=== PATIENT | male | born 1965 | race African-American/Black ===

== ENCOUNTER 2018-05-24 13:58 | Observation (INO) ==
[2018-05-24] MEDS ORDERED: 0.9 % Sodium Chloride 1,000 ML IVC ONE (14:28)
[2018-05-24] MEDS ORDERED: Ondansetron 4 MG/2 ML VIAL IVP ONE (14:30)
[2018-05-24 14:49] LABS: Basophils # 0.1 K/mcL (0.0-0.2); Basophils % 0.3 %; Eosinophils # 0.1 K/mcL (0.0-0.6); Eosinophils % 0.7 %; Hematocrit 40.2 % (37.5-50.1); Hemoglobin 13.7 g/dL (12.9-16.9); Immature Granulocytes % 0.8 % (0-4); Lymphocytes # 1.6 K/mcL (0.6-4.6); Lymphocytes % 8.6 %; Mean Corpuscular HGB Conc 34.1 g/dL (31.6-35.5); Mean Corpuscular Volume 82.2 fL (83.0-100.0); Mean Platelet Volume 9.7 fL (9.4-12.4); Monocytes # 1.5 K/mcL (0.0-1.3); Monocytes % 7.8 %; Neutrophils # 15.5 K/mcL (1.6-8.9); Platelet Count 466 K/mcL (140-400); Red Blood Count 4.89 M/mcL (4.19-5.50); Red Cell Distribution Width 13.6 % (11.5-14.5); Segmented Neutrophils % 81.8 %
[2018-05-24] MEDS ORDERED: Azithromycin 500 MG in D5% in Water 250 ML IVPB ONE (14:59)
[2018-05-24 15:02] LABS: Alanine Aminotransferase 58 Units/L (7-52); Albumin 3.4 g/dL (3.5-5.7); Albumin/Globulin Ratio 0.8 (1.1-2.2); Alkaline Phosphatase 129 Units/L (34-104); Aspartate Amino Transferase 48 Units/L (13-39); BUN/Creatinine Ratio 8 (6-26); Bilirubin,Direct 0.2 mg/dL (0.0-0.2); Bilirubin,Indirect 0.5 mg/dL (0.0-1.2); Bilirubin,Total 0.7 mg/dL (0.3-1.0); Blood Urea Nitrogen 9 mg/dL (6-20); Calcium 9.4 mg/dL (8.6-10.3); Carbon Dioxide 26 mEq/L (23-29); Chloride 100 mEq/L (98-107); Globulin 4.5 g/dL (2.4-3.5); Glucose 119 mg/dL (70-105); Lipase 19 Units/L (11-82); Magnesium 2.4 mg/dL (1.6-2.6); Osmolality,Calculated 282 (280-300); Potassium 3.5 mEq/L (3.5-5.1); Sodium 136 mEq/L (136-145); Total Protein 7.9 g/dL (6.4-8.9); eGFR For Non-African Americans > 60 (> 60)
[2018-05-24 15:22] LABS: Bilirubin,Urine Small (Negative); Blood,Urine Small (Negative); Clarity,Urine Cloudy (Clear); Color,Urine Yellow (Yellow); Glucose,Urine (UA) Normal (Normal); Ketones,Urine Negative (Negative); Leukocyte Esterase,Urine Negative (Negative); Nitrite,Urine Negative (Negative); Protein,Urine 100 mg/dL (Neg-Trace); Specific Gravity,Urine 1.025 (1.010-1.025)
[2018-05-24 15:25] LABS: Hyaline Casts,Urine None Seen per lpf (None-Few); RBC,Urine 0-3 per hpf (0-3)
[2018-05-24 15:42] LABS: Squamous Epithelial Cell,Urine Few per lpf (None-Few)
[2018-05-24 15:43] LABS: Bacteria,Urine Few per hpf (None-Few); WBC,Urine 0-3 per hpf (0-3)
--- NOTE | 2018-05-24 16:00 | Emergency Department Note ---
Disposition Clinical Impression: Pneumonia Qualifiers: Pneumonia type: due to unspecified organism Laterality: bilateral Lung location: lower lobe of lung Qualified Code(s): J18.1 - Lobar pneumonia, unspecified organism Disposition: Admitted As Inpatient Referrals: NONE,PCP [Primary Care Provider] - General Adult HPI - General Chief complaint: ED Weakness Stated complaint: sick/bones hurt/vomiting Time Seen by Provider: 05/24/18 14:08 Source: patient Limitations: no limitations - History of Present Illness Pain Scale: 8 - Related Data Allergies Allergy/AdvReac Type Severity Reaction Status Date / Time No Known Allergies Allergy Verified 05/24/18 14:01 Past Medical History - Past Medical History Medical history: Reports: no medical history Psychiatric history: Reports: no psych history - Social History Smoking Status: Current every day smoker Smokeless Tobacco Status: No Alcohol use: Reports: rarely Drug use: Reports: none Physical Exam - General Limitations: no limitations General appearance: alert, in no apparent distress Course Vital Signs Temperature 100.1 F H 05/24/18 13:59 Pulse Rate 114 05/24/18 13:59 Respiratory Rate 22 05/24/18 13:59 Blood Pressure 143/77 05/24/18 13:59 O2 Sat by Pulse Oximetry 93 05/24/18 13:59 Temperature 101.9 F H 05/24/18 15:34 Pulse Rate 103 05/24/18 15:34 Respiratory Rate 20 05/24/18 15:34 Blood Pressure 140/91 05/24/18 15:34 O2 Sat by Pulse Oximetry 99 05/24/18 15:34 Oxygen Delivery Oxygen Delivery Room Air Medical Decision Making - Lab Data Result diagrams: 05/24/18 14:33 05/24/18 14:33 Lab Results 05/24/18 05/24/18 05/24/18 Range/Units 14:33 14:33 14:33 WBC 18.9 H (4.3-11.1) K/mcL RBC 4.89 (4.19-5.50) M/mcL Hgb 13.7 (12.9-16.9) g/dL Hct 40.2 (37.5-50.1) % MCV 82.2 L (83.0-100.0) fL MCH 28.0 (28.0-33.3) pg MCHC 34.1 (31.6-35.5) g/dL RDW 13.6 (11.5-14.5) % Plt Count 466 H (140-400) K/mcL MPV 9.7 (9.4-12.4) fL Immature Gran % 0.8 (0-4) % Seg Neutrophils % 81.8 % Lymphocytes % 8.6 % Monocytes % 7.8 % Eosinophils % 0.7 % Basophils % 0.3 % Neutrophils # 15.5 H (1.6-8.9) K/mcL Lymphocytes # 1.6 (0.6-4.6) K/mcL Monocytes # 1.5 H (0.0-1.3) K/mcL Eosinophils # 0.1 (0.0-0.6) K/mcL Basophils # 0.1 (0.0-0.2) K/mcL Sodium (136-145) mEq/L Potassium (3.5-5.1) mEq/L Chloride (98-107) mEq/L Carbon Dioxide (23-29) mEq/L BUN (6-20) mg/dL Creatinine (0.70-1.30) mg/dL Est GFR ( Amer) (> 60) Est GFR (Non-Af Amer) (> 60) BUN/Creatinine Ratio (6-26) Glucose (70-105) mg/dL Calculated Osmolality (280-300) Lactic Acid 1.1 (0.5-2.2) mmol/L Calcium (8.6-10.3) mg/dL Magnesium (1.6-2.6) mg/dL Total Bilirubin (0.3-1.0) mg/dL Direct Bilirubin (0.0-0.2) mg/dL Indirect Bilirubin (0.0-1.2) mg/dL AST (13-39) Units/L ALT (7-52) Units/L Alkaline Phosphatase (34-104) Units/L Troponin I < 0.03 (< 0.04) ng/mL Serum Total Protein (6.4-8.9) g/dL Albumin (3.5-5.7) g/dL Globulin (2.4-3.5) g/dL Albumin/Globulin Ratio (1.1-2.2) Lipase (11-82) Units/L Urine Color (Yellow) Urine Clarity (Clear) Urine pH (5.0-8.0) pH Units Ur Specific [place] (1.010-1.025) Urine Protein (Neg-Trace) mg/dL Urine Glucose (UA) (Normal) mg/dL Urine Ketones (Negative) mg/dL Urine Blood (Negative) Urine Nitrite (Negative) Urine Bilirubin (Negative) Urine Urobilinogen (Normal) mg/dL Ur Leukocyte Esterase (Negative) Urine Microscopic RBC (0-3) per hpf Urine Microscopic WBC (0-3) per hpf Ur Squamous Epith Cells (None-Few) per lpf Urine Bacteria (None-Few) per hpf Hyaline Casts (None-Few) per lpf Ur Culture Indicated? (NO) 05/24/18 05/24/18 Range/Units 14:33 14:55 WBC (4.3-11.1) K/mcL RBC (4.19-5.50) M/mcL Hgb (12.9-16.9) g/dL Hct (37.5-50.1) % MCV (83.0-100.0) fL MCH (28.0-33.3) pg MCHC (31.6-35.5) g/dL RDW (11.5-14.5) % Plt Count (140-400) K/mcL MPV (9.4-12.4) fL Immature Gran % (0-4) % Seg Neutrophils % % Lymphocytes % % Monocytes % % Eosinophils % % Basophils % % Neutrophils # (1.6-8.9) K/mcL Lymphocytes # (0.6-4.6) K/mcL Monocytes # (0.0-1.3) K/mcL Eosinophils # (0.0-0.6) K/mcL Basophils # (0.0-0.2) K/mcL Sodium 136 (136-145) mEq/L Potassium 3.5 (3.5-5.1) mEq/L Chloride 100 (98-107) mEq/L Carbon Dioxide 26 (23-29) mEq/L BUN 9 (6-20) mg/dL Creatinine 1.08 (0.70-1.30) mg/dL Est GFR ( Amer) > 60 (> 60) Est GFR (Non-Af Amer) > 60 (> 60) BUN/Creatinine Ratio 8 (6-26) Glucose 119 H (70-105) mg/dL Calculated Osmolality 282 (280-300) Lactic Acid (0.5-2.2) mmol/L Calcium 9.4 (8.6-10.3) mg/dL Magnesium 2.4 (1.6-2.6) mg/dL Total Bilirubin 0.7 (0.3-1.0) mg/dL Direct Bilirubin 0.2 (0.0-0.2) mg/dL Indirect Bilirubin 0.5 (0.0-1.2) mg/dL AST 48 H (13-39) Units/L ALT 58 H (7-52) Units/L Alkaline Phosphatase 129 H (34-104) Units/L Troponin I (< 0.04) ng/mL Serum Total Protein 7.9 (6.4-8.9) g/dL Albumin 3.4 L (3.5-5.7) g/dL Globulin 4.5 H (2.4-3.5) g/dL Albumin/Globulin Ratio 0.8 L (1.1-2.2) Lipase 19 (11-82) Units/L Urine Color Yellow (Yellow) Urine Clarity Cloudy A (Clear) Urine pH 6.0 (5.0-8.0) pH Units Ur Specific [place] 1.025 (1.010-1.025) Urine Protein 100 H (Neg-Trace) mg/dL Urine Glucose (UA) Normal (Normal) mg/dL Urine Ketones Negative (Negative) mg/dL Urine Blood Small H (Negative) Urine Nitrite Negative (Negative) Urine Bilirubin Small H (Negative) Urine Urobilinogen 2.0 H (Normal) mg/dL Ur Leukocyte Esterase Negative (Negative) Urine Microscopic RBC 0-3 (0-3) per hpf Urine Microscopic WBC 0-3 (0-3) per hpf Ur Squamous Epith Cells Few (None-Few) per lpf Urine Bacteria Few (None-Few) per hpf Hyaline Casts None Seen (None-Few) per lpf Ur Culture Indicated? NO (NO) Attestation Statement - Attestation Attestation: I examined this patient and my medical decision-making was reviewed with the Resident Physician. I agree with the documented findings, disposition and treatment plan as described except to the extent set forth below. 53 year old male presents to the ED with complaints of bone pain and sick and is tachycardiac and febrile and meets sIRS criteria. Appears he has pnuemon aon CT and CXR. WE will start azithromyocin and admit to medicne.
--- NOTE | 2018-05-24 16:17 | Internal Med History&Physical ---
Date of Encounter: 05/24/18 Time of Encounter: 17:37 Internal Medicine - H&P: HPI Chief complaint: Fever History of present illness: 53-year-old male with significant past medical history of hypertension presenting to the emergency department with chief complaint of weakness, fevers and chills associated with excessive sweating and chest discomfort . He was evaluated by the emergency department staff and his work up revealed CAP, he was admitted for further evaluation. The patient admitted to drug abuse several years ago. Past Med Surg Social Fam HX - Past Medical History Medical history: no medical history Psychiatric history: no psych history - Past Surgical History Additional surgical history: leah in R leg - Social History Smoking Status: Current every day smoker Smokeless Tobacco Status: No Alcohol use: rarely Drug use: none Internal Medicine - H&P: Meds RX: Lisinopril [Zestril] 20 mg PO DAILY 05/24/18 [History] Allergy/AdvReac Type Severity Reaction Status Date / Time No Known Allergies Allergy Verified 05/24/18 14:01 All Systems PM: A 10-system review of systems was performed and is negative for pertinent findings except as documented above in the HPI. - Constitutional Constitutional: chills, excessive sweating, fatigue, fever(s), no night sweats - Cardiovascular Cardiovascular ROS IM: chest pain, no diaphoresis, no dyspnea, no lightheadedness, no palpitations, no syncope - Respiratory Respiratory: no cough, no dyspnea, no wheezing, no excessive phlegm production - Gastrointestinal Gastrointestinal: no abdominal pain, no diarrhea, no hematemesis, no hematochezia, no melena, no nausea, no vomiting - Neurological Neurological ROS: no confusion, no convulsions, no focal weakness, no numbness, no tingling, no tremor(s) - Constitutional Vitals: Temp Pulse Resp BP Pulse Ox 101.9 F H 103 20 140/91 99 05/24/18 15:34 05/24/18 15:34 05/24/18 15:34 05/24/18 15:34 05/24/18 15:34 General appearance: Present: A&O X 3 Exam: as below - Head Head exam: Present: atraumatic, normocephalic - Neck Neck exam general surgery: Present: supple, trachea midline. Absent: lymphadenopathy - Respiratory Respiratory exam: Present: CTAB. Absent: accessory muscle use, rales, rhonchi, wheezes - Cardiovascular Cardiovascular exam: Present: RRR, +S1, +S2. Absent: diastolic murmur, gallop, rubs, systolic murmur - GI/Abdominal GI/Abdominal exam: Present: normal bowel sounds, soft, no peritoneal signs. Absent: distended, tenderness - Extremities Exam Extremities exam: Present: warm, radial pulses palpable and symmetrical. Absent: calf tenderness, cyanotic, pedal edema Internal Med - H&P Results - Labs CBC & Chem 7: 05/26/18 03:38 05/26/18 03:38 Labs: Short CBC 05/24/18 Range/Units 14:33 WBC 18.9 H (4.3-11.1) K/mcL Hgb 13.7 (12.9-16.9) g/dL Hct 40.2 (37.5-50.1) % Plt Count 466 H (140-400) K/mcL Neutrophils # 15.5 H (1.6-8.9) K/mcL BMP 05/24/18 14:33 Sodium 136 Potassium 3.5 Chloride 100 Carbon Dioxide 26 BUN 9 Creatinine 1.08 Glucose 119 H Calcium 9.4 Cardiac Enzymes 05/24/18 Range/Units 14:33 Troponin I < 0.03 (< 0.04) ng/mL Liver Function 05/24/18 Range/Units 14:33 Total Bilirubin 0.7 (0.3-1.0) mg/dL Direct Bilirubin 0.2 (0.0-0.2) mg/dL AST 48 H (13-39) Units/L ALT 58 H (7-52) Units/L Alkaline Phosphatase 129 H (34-104) Units/L Albumin 3.4 L (3.5-5.7) g/dL Urine 05/24/18 Range/Units 14:55 Urine Color Yellow (Yellow) Urine Clarity Cloudy A (Clear) Urine pH 6.0 (5.0-8.0) pH Units Ur Specific [place] 1.025 (1.010-1.025) Urine Protein 100 H (Neg-Trace) mg/dL Urine Glucose (UA) Normal (Normal) mg/dL - Impressions ITS Impressions Abdomen/Pelvis CT 05/24/18 14:29 IMPRESSION: 1. Exam is limited without IV or oral contrast. 2. No definite acute inflammatory process of the bowel is evident. 3. Nonobstructing left nephrolithiasis. 4. Mild calcific atherosclerosis. 5. Infiltrate bilateral lower lungs, left greater than right concerning for pneumonia. Aspiration pneumonitis is a consideration. D/ / Adolph Forbes / Adolph Forbes Interpreting Provider: Adolph Forbes Chest X-Ray 05/24/18 14:29 IMPRESSION: Findings consistent with left lung base pneumonia. D/ / 05/24/2018 15:33:55 Georges Baldwin MD / Catalina Bhagat Interpreting Provider: Georges Baldwin MD - Assessment and plan (1) Pneumonia Current Visit: Yes Status: Acute Assessment and plan: - Blood Cx - Antibiotics - CBCD, CMP in AM - Tylenol 650 mg PO q 4-6 hr PRN pain or fever - Home meds - check the list and restart accordingly - Heparin 5000 U SQ BID Qualifiers: Pneumonia type: due to unspecified organism Laterality: bilateral Lung location: lower lobe of lung Qualified Code(s): J18.1 - Lobar pneumonia, unspecified organism (2) Sepsis Current Visit: Yes Status: Acute Assessment and plan: - IV hydration with isotonic fluid - Blood Cx - Urine Legionella antigen - Antibiotics - CBCD, CMP in AM - Tylenol 650 mg PO q 4-6 hr PRN pain or fever - Heparin 5000 U SQ BID Qualifiers: Sepsis type: sepsis due to unspecified organism Qualified Code(s): A41.9 - Sepsis, unspecified organism (3) Hypertension Current Visit: Yes Status: Acute Assessment and plan: We will continue home meds Qualifiers: Qualified Code(s): I10 - Essential (primary) hypertension (4) DVT prophylaxis Current Visit: Yes Status: Acute - Time Spent With Patient Total time spent is greater than 50% in coordination of care (as documented) at patient's floor/unit and/or counseling patient:
--- NOTE | 2018-05-24 16:19 | Emergency Department Note ---
Disposition Clinical Impression: Pneumonia Qualifiers: Pneumonia type: due to unspecified organism Laterality: bilateral Lung location: lower lobe of lung Qualified Code(s): J18.1 - Lobar pneumonia, unspecified organism Sepsis Qualifiers: Sepsis type: sepsis due to unspecified organism Qualified Code(s): A41.9 - Sepsis, unspecified organism Disposition: Admitted As Inpatient Condition: Fair Referrals: NONE,PCP [Primary Care Provider] - Forms: ED Satisfaction Letter General Adult HPI - General Chief complaint: ED Weakness Stated complaint: sick/bones hurt/vomiting Time Seen by Provider: 05/24/18 14:08 Source: patient Mode of arrival: ambulatory Limitations: no limitations Nursing Notes Reviewed: Yes Vital Signs Reviewed: Yes - History of Present Illness HPI Narrative: 53-year-old male with significant past medical history of hypertension presenting to the emergency department with chief complaint of weakness, fevers and diarrhea. Patient states for approximately 6 days he has been having these symptoms. He states he is sweating through his clothes and now feels dehy drated. Patient denies any blood in his stool. This morning he woke up was having substernal chest pain and came to the emergency department for further evaluation. He denies any radiation of the pain. Denies any previous cardiac history. States he has sick contacts in his home but there symptoms are not as severe as his. Pain Scale: 8 - Related Data Home Medications Medication Instructions Recorded Confirmed Lisinopril [Zestril] 20 mg PO DAILY 05/24/18 05/24/18 Allergies Allergy/AdvReac Type Severity Reaction Status Date / Time No Known Allergies Allergy Verified 05/24/18 14:01 All systems ED: reviewed and negative except as stated. Constitutional: Reports: fever, chills, weakness Eyes: Reports: as per HPI ENT ED: Reports: as per HPI Cardiovascular: Reports: chest pain. Denies: palpitations, dyspnea on exertion Respiratory: Denies: wheezes, hemoptysis, stridor Gastrointestinal: Reports: abdominal pain, nausea, diarrhea Genitourinary: Reports: as per HPI Musculoskeletal: Reports: as per HPI Integumentary: Reports: as per HPI Neurological: Reports: weakness. Denies: numbness, paresthesias Psychiatric: Reports: as per HPI Endocrine: Reports: as per HPI Hematological/Lymphatic: Reports: as per HPI Allergic/Immunologic: Reports: as per HPI Past Medical History - Past Medical History Attestation: Yes The following information was validated with the patient. Medical history: Reports: no medical history Psychiatric history: Reports: no psych history - Social History Smoking Status: Current every day smoker Smokeless Tobacco Status: No Alcohol use: Reports: rarely Drug use: Reports: none Physical Exam - General Limitations: no limitations General appearance: alert, in no apparent distress - Head Head exam: atraumatic, normocephalic, normal inspection - Eye Eye exam: Present: normal appearance. Absent: scleral icterus, conjunctival injection - ENT ENT exam: mucous membranes dry - Neck Neck exam: Present: normal inspection, full ROM. Absent: tenderness, meningismus - Chest Chest inspection: Present: normal inspection, symmetric chest wall rise. Absent: tenderness, rash - Respiratory Respiratory exam: Present: normal lung sounds bilaterally. Absent: respiratory distress, wheezes, stridor - Cardiovascular Cardiovascular exam: Present: normal rhythm, tachycardia, normal heart sounds - Abdominal Exam Abdominal exam: Present: soft, tenderness. Absent: distention, guarding, rebound, rigidity Abdominal tenderness: Present: diffuse, mild Course Course Narrative: 53-year-old male presenting with multiple generalized complaints including weakness, diarrhea, chest pain and cold sweats. On exam patient is diaphoretic. He is tachycardic but hemodynamically stable. He is alert and oriented 3. At this time will work him up concern for sepsis. We will obtain a chest x-ray, urine, basic laboratory analysis and blood cultures. Patient also having some diffuse mild abdominal tenderness we will get a CT of the abdomen and pelvis. Disposition pending results. patient agrees with this plan. - Reevaluation(s) Reevaluation #1: Patient's laboratory analysis shows leukocytosis, elevated liver enzymes and pneumonia. We will provide the patient with azithromycin at this time. Patient has been alert and oriented 3 and hemodynamically stable throughout his stay. We will plan to admit him for sepsis from community-acquired pneumonia. Sheila ent agrees with this plan. I spoke with the hospitalist on-call Dr. Cummins who agrees to accept the patient at this time. Vital Signs Temperature 100.1 F H 05/24/18 13:59 Pulse Rate 114 05/24/18 13:59 Respiratory Rate 22 05/24/18 13:59 Blood Pressure 143/77 05/24/18 13:59 O2 Sat by Pulse Oximetry 93 05/24/18 13:59 Temperature 101.9 F H 05/24/18 15:34 Pulse Rate 72 05/24/18 16:21 Respiratory Rate 18 05/24/18 16:21 Blood Pressure 138/77 05/24/18 16:21 O2 Sat by Pulse Oximetry 100 05/24/18 16:21 Oxygen Delivery Oxygen Delivery Room Air Medical Decision Making - Lab Data Result diagrams: 05/24/18 14:33 05/24/18 14:33 Lab Results 05/24/18 05/24/18 05/24/18 Range/Units 14:33 14:33 14:33 WBC 18.9 H (4.3-11.1) K/mcL RBC 4.89 (4.19-5.50) M/mcL Hgb 13.7 (12.9-16.9) g/dL Hct 40.2 (37.5-50.1) % MCV 82.2 L (83.0-100.0) fL MCH 28.0 (28.0-33.3) pg MCHC 34.1 (31.6-35.5) g/dL RDW 13.6 (11.5-14.5) % Plt Count 466 H (140-400) K/mcL MPV 9.7 (9.4-12.4) fL Immature Gran % 0.8 (0-4) % Seg Neutrophils % 81.8 % Lymphocytes % 8.6 % Monocytes % 7.8 % Eosinophils % 0.7 % Basophils % 0.3 % Neutrophils # 15.5 H (1.6-8.9) K/mcL Lymphocytes # 1.6 (0.6-4.6) K/mcL Monocytes # 1.5 H (0.0-1.3) K/mcL Eosinophils # 0.1 (0.0-0.6) K/mcL Basophils # 0.1 (0.0-0.2) K/mcL Sodium (136-145) mEq/L Potassium (3.5-5.1) mEq/L Chloride (98-107) mEq/L Carbon Dioxide (23-29) mEq/L BUN (6-20) mg/dL Creatinine (0.70-1.30) mg/dL Est GFR ( Amer) (> 60) Est GFR (Non-Af Amer) (> 60) BUN/Creatinine Ratio (6-26) Glucose (70-105) mg/dL Calculated Osmolality (280-300) Lactic Acid 1.1 (0.5-2.2) mmol/L Calcium (8.6-10.3) mg/dL Magnesium (1.6-2.6) mg/dL Total Bilirubin (0.3-1.0) mg/dL Direct Bilirubin (0.0-0.2) mg/dL Indirect Bilirubin (0.0-1.2) mg/dL AST (13-39) Units/L ALT (7-52) Units/L Alkaline Phosphatase (34-104) Units/L Troponin I < 0.03 (< 0.04) ng/mL Serum Total Protein (6.4-8.9) g/dL Albumin (3.5-5.7) g/dL Globulin (2.4-3.5) g/dL Albumin/Globulin Ratio (1.1-2.2) Lipase (11-82) Units/L Urine Color (Yellow) Urine Clarity (Clear) Urine pH (5.0-8.0) pH Units Ur Specific [place] (1.010-1.025) Urine Protein (Neg-Trace) mg/dL Urine Glucose (UA) (Normal) mg/dL Urine Ketones (Negative) mg/dL Urine Blood (Negative) Urine Nitrite (Negative) Urine Bilirubin (Negative) Urine Urobilinogen (Normal) mg/dL Ur Leukocyte Esterase (Negative) Urine Microscopic RBC (0-3) per hpf Urine Microscopic WBC (0-3) per hpf Ur Squamous Epith Cells (None-Few) per lpf Urine Bacteria (None-Few) per hpf Hyaline Casts (None-Few) per lpf Ur Culture Indicated? (NO) 05/24/18 05/24/18 Range/Units 14:33 14:55 WBC (4.3-11.1) K/mcL RBC (4.19-5.50) M/mcL Hgb (12.9-16.9) g/dL Hct (37.5-50.1) % MCV (83.0-100.0) fL MCH (28.0-33.3) pg MCHC (31.6-35.5) g/dL RDW (11.5-14.5) % Plt Count (140-400) K/mcL MPV (9.4-12.4) fL Immature Gran % (0-4) % Seg Neutrophils % % Lymphocytes % % Monocytes % % Eosinophils % % Basophils % % Neutrophils # (1.6-8.9) K/mcL Lymphocytes # (0.6-4.6) K/mcL Monocytes # (0.0-1.3) K/mcL Eosinophils # (0.0-0.6) K/mcL Basophils # (0.0-0.2) K/mcL Sodium 136 (136-145) mEq/L Potassium 3.5 (3.5-5.1) mEq/L Chloride 100 (98-107) mEq/L Carbon Dioxide 26 (23-29) mEq/L BUN 9 (6-20) mg/dL Creatinine 1.08 (0.70-1.30) mg/dL Est GFR ( Amer) > 60 (> 60) Est GFR (Non-Af Amer) > 60 (> 60) BUN/Creatinine Ratio 8 (6-26) Glucose 119 H (70-105) mg/dL Calculated Osmolality 282 (280-300) Lactic Acid (0.5-2.2) mmol/L Calcium 9.4 (8.6-10.3) mg/dL Magnesium 2.4 (1.6-2.6) mg/dL Total Bilirubin 0.7 (0.3-1.0) mg/dL Direct Bilirubin 0.2 (0.0-0.2) mg/dL Indirect Bilirubin 0.5 (0.0-1.2) mg/dL AST 48 H (13-39) Units/L ALT 58 H (7-52) Units/L Alkaline Phosphatase 129 H (34-104) Units/L Troponin I (< 0.04) ng/mL Serum Total Protein 7.9 (6.4-8.9) g/dL Albumin 3.4 L (3.5-5.7) g/dL Globulin 4.5 H (2.4-3.5) g/dL Albumin/Globulin Ratio 0.8 L (1.1-2.2) Lipase 19 (11-82) Units/L Urine Color Yellow (Yellow) Urine Clarity Cloudy A (Clear) Urine pH 6.0 (5.0-8.0) pH Units Ur Specific [place] 1.025 (1.010-1.025) Urine Protein 100 H (Neg-Trace) mg/dL Urine Glucose (UA) Normal (Normal) mg/dL Urine Ketones Negative (Negative) mg/dL Urine Blood Small H (Negative) Urine Nitrite Negative (Negative) Urine Bilirubin Small H (Negative) Urine Urobilinogen 2.0 H (Normal) mg/dL Ur Leukocyte Esterase Negative (Negative) Urine Microscopic RBC 0-3 (0-3) per hpf Urine Microscopic WBC 0-3 (0-3) per hpf Ur Squamous Epith Cells Few (None-Few) per lpf Urine Bacteria Few (None-Few) per hpf Hyaline Casts None Seen (None-Few) per lpf Ur Culture Indicated? NO (NO) - EKG Data EKG #1 EKG attestation: Yes I reviewed and interpreted this EKG. EKG results narrative: Sinus rhythm. 90 beats for minute. MS interval 169, QRS 87, QTC 431. Peaked T waves noted throughout but no acute ST segment elevation or ischemia.
[2018-05-24] MEDS ORDERED: Ondansetron 4 MG/2 ML VIAL IVP PRN (17:54)
[2018-05-24] MEDS ORDERED: Mag Hydrox/Al Hydrox/Simeth 30 ML UDC PO PRN (17:54)
[2018-05-24] MEDS ORDERED: Naloxone 0.4 MG/ML INJ IVP PRN (17:54)
[2018-05-24] MEDS ORDERED: MOM Conc 10 ML UD.LIQ PO PRN (17:54)
[2018-05-24 18:02] LABS: Hepatitis B Surface Antigen Nonreactive (Nonreactive)
[2018-05-24 18:49] LABS: INR 1.2
[2018-05-24 18:52] LABS: Activated Partial Thrombo Time 32.6 Seconds (26.0-36.0)
[2018-05-24 18:54] LABS: Chol/HDL Ratio 4.4 (0-4.9)
[2018-05-24] MEDS: 0.9 % Sodium Chloride 1,000 ML IVC SCH (21:09)
[2018-05-24] MEDS: Acetaminophen 325 MG TABLET PO PRN (23:48)
[2018-05-25] MEDS: GuaiFENesin/Dextromethorphan TABLET PO SCH ×3 (00:35→20:03)
[2018-05-25 00:50] LABS: Hematocrit 34.1 % (37.5-50.1); Mean Corpuscular HGB Conc 34.9 g/dL (31.6-35.5); Mean Corpuscular Hemoglobin 28.8 pg (28.0-33.3); Mean Corpuscular Volume 82.6 fL (83.0-100.0); Mean Platelet Volume 9.5 fL (9.4-12.4); Platelet Count 406 K/mcL (140-400); Red Blood Count 4.13 M/mcL (4.19-5.50); Red Cell Distribution Width 13.8 % (11.5-14.5)
[2018-05-25] MEDS: Levalbuterol Neb 0.63 MG/3 ML IH SCH ×5 (00:51→22:24)
[2018-05-25 01:03] LABS: Bilirubin,Urine Small (Negative); Blood,Urine Negative (Negative); Clarity,Urine Clear (Clear); Color,Urine Dark Yellow (Yellow); Glucose,Urine (UA) Normal (Normal); Ketones,Urine Negative (Negative); Leukocyte Esterase,Urine Trace (Negative); Nitrite,Urine Negative (Negative); Protein,Urine 30 mg/dL (Neg-Trace); Specific Gravity,Urine 1.015 (1.010-1.025); Urobilinogen,Urine >=8.0 mg/dL (Normal)
[2018-05-25 01:05] LABS: Hyaline Casts,Urine None Seen per lpf (None-Few); RBC,Urine 0-3 per hpf (0-3); Squamous Epithelial Cell,Urine Moderate per lpf (None-Few)
[2018-05-25 01:09] LABS: Alanine Aminotransferase 62 Units/L (7-52); Albumin 2.9 g/dL (3.5-5.7); Albumin/Globulin Ratio 0.8 (1.1-2.2); Alkaline Phosphatase 115 Units/L (34-104); Aspartate Amino Transferase 64 Units/L (13-39); BUN/Creatinine Ratio 12 (6-26); Bilirubin,Total 0.5 mg/dL (0.3-1.0); Blood Urea Nitrogen 11 mg/dL (6-20); Calcium 8.6 mg/dL (8.6-10.3); Carbon Dioxide 26 mEq/L (23-29); Chloride 103 mEq/L (98-107); Globulin 3.7 g/dL (2.4-3.5); Glucose 109 mg/dL (70-105); Magnesium 2.1 mg/dL (1.6-2.6); Osmolality,Calculated 284 (280-300); Phosphorous 2.3 mg/dL (2.7-4.5); Potassium 3.6 mEq/L (3.5-5.1); Sodium 137 mEq/L (136-145); Total Protein 6.6 g/dL (6.4-8.9); eGFR For Non-African Americans > 60 (> 60)
[2018-05-25 01:13] LABS: Hemoglobin 11.9 g/dL (12.9-16.9)
[2018-05-25 01:24] LABS: Bacteria,Urine Few per hpf (None-Few)
[2018-05-25 02:17] LABS: Adenovirus Not Detected (Not Detect); Bordetella Pertussis Not Detected (Not Detect); Chlamydophila pneumoniae Not Detected (Not Detect); Coronavirus 229E Not Detected (Not Detect); Coronavirus HKU1 Not Detected (Not Detect); Coronavirus NL63 Not Detected (Not Detect); Coronavirus OC43 Not Detected (Not Detect); Human Metapneumovirus Not Detected (Not Detect); Influenza A Subtype 2009 H1 Not Detected (Not Detect); Influenza A Untypeable Not Detected (Not Detect); Influenza B Not Detected (Not Detect); Mycoplasma pneumoniae Not Detected (Not Detect); Parainfluenza Virus 1 Not Detected (Not Detect); Parainfluenza Virus 2 Not Detected (Not Detect); Parainfluenza Virus 3 Not Detected (Not Detect); Parainfluenza Virus 4 Not Detected (Not Detect); Respiratory Syncytial Virus Not Detected (Not Detect)
[2018-05-25 02:19] LABS: Human Rhinovirus/Enterovirus DETECTED (Not Detect)
[2018-05-25] MEDS: 0.9 % Sodium Chloride 1,000 ML IVC SCH (05:10)
[2018-05-25] MEDS: Acetaminophen 325 MG TABLET PO PRN ×3 (07:20→18:05)
--- NOTE | 2018-05-25 08:51 | Internal Med Progress Note ---
Hospitalist Progress Note - Encounter Date of Encounter: 05/25/18 Time of Encounter: 10:00 - Exam Vitals: Temp Pulse Resp BP Pulse Ox 102 F H 98 18 143/88 95 05/25/18 07:09 05/25/18 07:09 05/25/18 07:09 05/25/18 07:09 05/25/18 07:09 Exam: Gen - Awake, alert, oriented x 3, no acute distress HEENT - NCAT, PERRLA, EOMI, hearing grossly intact, oropharynx benign CV - RRR, normal S1 and S2, no M/R/G, no BLE edema Resp - Normal WOB, CTAB, no W/R/R GI - Soft, NT/ND, no masses, normal bowel sounds, Skin - Warm, dry, no rashes/lesions/ulcers Psych - Normal mood and affect, no depression or anxiety - Assessment and Plan (1) Sepsis Current Visit: Yes Status: Acute Assessment and Plan: pt is febrile up to 102 and has bilateral pneumonia and leukocytosis Follow up blood cultures, urine strep and legionella antigen Concern for aspiration. Will switch antibiotics to zosyn (2) Pneumonia Current Visit: Yes Status: Acute Assessment and Plan: Continue zosyn. Follow up cultures. Has viral pneumonia as well with enterovirus positive in respiratory panel (3) Hypertension Current Visit: Yes Status: Acute Assessment and Plan: We will continue home meds (4) DVT prophylaxis Current Visit: Yes Status: Acute Assessment and Plan: Heparin sc - Time Spent with Patient Total time spent is greater than 50% in coordination of care (as documented) at patient's floor/unit and/or counseling patient: Internal Medicine: Result - Labs CBC & Chem 7: 05/25/18 00:35 05/25/18 00:35 Labs: Short CBC 05/24/18 05/25/18 Range/Units 14:33 00:35 WBC 18.9 H 16.5 H (4.3-11.1) K/mcL Hgb 13.7 11.9 L D (12.9-16.9) g/dL Hct 40.2 34.1 L (37.5-50.1) % Plt Count 466 H 406 H (140-400) K/mcL Neutrophils # 15.5 H (1.6-8.9) K/mcL BMP 05/24/18 05/25/18 14:33 00:35 Sodium 136 137 Potassium 3.5 3.6 Chloride 100 103 Carbon Dioxide 26 26 BUN 9 11 Creatinine 1.08 0.93 Glucose 119 H 109 H Calcium 9.4 8.6 Cardiac Enzymes 05/24/18 Range/Units 14:33 Troponin I < 0.03 (< 0.04) ng/mL Liver Function 05/24/18 05/25/18 Range/Units 14:33 00:35 Total Bilirubin 0.7 0.5 (0.3-1.0) mg/dL Direct Bilirubin 0.2 (0.0-0.2) mg/dL AST 48 H 64 H (13-39) Units/L ALT 58 H 62 H (7-52) Units/L Alkaline Phosphatase 129 H 115 H (34-104) Units/L Albumin 3.4 L 2.9 L (3.5-5.7) g/dL Urine 05/24/18 05/25/18 Range/Units 14:55 00:40 Urine Color Yellow Dark Yellow (Yellow) Urine Clarity Cloudy A Clear (Clear) Urine pH 6.0 6.0 (5.0-8.0) pH Units Ur Specific [place] 1.025 1.015 (1.010-1.025) Urine Protein 100 H 30 H (Neg-Trace) mg/dL Urine Glucose (UA) Normal Normal (Normal) mg/dL - ABG Interpretation ABG results: PT/INR, D-dimer PT 14.0 Seconds (9.4-12.1) H 05/24/18 18:22 - Impressions Impressions Abdomen/Pelvis CT 05/24/18 14:29 IMPRESSION: 1. Exam is limited without IV or oral contrast. 2. No definite acute inflammatory process of the bowel is evident. 3. Nonobstructing left nephrolithiasis. 4. Mild calcific atherosclerosis. 5. Infiltrate bilateral lower lungs, left greater than right concerning for pneumonia. Aspiration pneumonitis is a consideration. D/ / Adolph Forbes / Adolph Forbes Interpreting Provider: Adolph Forbes Chest X-Ray 05/24/18 14:29 IMPRESSION: Findings consistent with left lung base pneumonia. D/ / 05/24/2018 15:33:55 Georges Baldwin MD / Catalina Bhagat Interpreting Provider: Georges Baldwin MD Consult Discharge Plan - Plan Referrals: NONE,PCP [Primary Care Provider] - (1) Sepsis Qualifiers: Sepsis type: sepsis due to unspecified organism Qualified Code(s): A41.9 - Sepsis, unspecified organism (2) Pneumonia Qualifiers: Pneumonia type: due to unspecified organism Laterality: bilateral Lung location: lower lobe of lung Qualified Code(s): J18.1 - Lobar pneumonia, unspe cified organism (3) Hypertension Qualifiers: Qualified Code(s): I10 - Essential (primary) hypertension
[2018-05-25] MEDS ORDERED: Levofloxacin 750 MG/150 ML 750 MG/150 ML BAG IVPB SCH (09:00)
[2018-05-25] MEDS: Lisinopril 20 MG TABLET PO SCH (10:18)
[2018-05-25] MEDS: *HR* HYDROcodone/Acet 5/325 mg TABLET PO PRN (10:24)
[2018-05-25] MEDS: Piperacillin/Tazobactam 3.375 GM in 0.9 % Sodium Chloride Mini Bag 100 ML IVPB SCH (17:00)
[2018-05-25] MEDS: *HR* Heparin 5,000 UNIT/ML VIAL SQ SCH (18:06)
[2018-05-26] MEDS: *HR* HYDROcodone/Acet 5/325 mg TABLET PO PRN (00:02)
[2018-05-26] MEDS: Piperacillin/Tazobactam 3.375 GM in 0.9 % Sodium Chloride Mini Bag 100 ML IVPB SCH ×3 (00:02→17:32)
[2018-05-26 03:37] LABS: Hepatitis A Antibody IgM Nonreactive (Nonreactive); Hepatitis B Core IgM Nonreactive (Nonreactive); Hepatitis C Virus Antibody Nonreactive (Nonreactive)
[2018-05-26 04:11] LABS: Hematocrit 32.7 % (37.5-50.1); Hemoglobin 11.2 g/dL (12.9-16.9); Immature Granulocytes % 2.2 % (0-4); Mean Corpuscular HGB Conc 34.3 g/dL (31.6-35.5); Mean Corpuscular Hemoglobin 28.5 pg (28.0-33.3); Mean Corpuscular Volume 83.2 fL (83.0-100.0); Mean Platelet Volume 9.3 fL (9.4-12.4); Platelet Count 482 K/mcL (140-400); Red Blood Count 3.93 M/mcL (4.19-5.50); Red Cell Distribution Width 13.8 % (11.5-14.5); Segmented Neutrophils % 74.6 %
[2018-05-26 04:12] LABS: Basophils # 0.1 K/mcL (0.0-0.2); Basophils % 0.4 %; Eosinophils # 0.4 K/mcL (0.0-0.6); Lymphocytes # 1.6 K/mcL (0.6-4.6); Monocytes # 1.3 K/mcL (0.0-1.3); Monocytes % 8.8 %; Neutrophils # 10.7 K/mcL (1.6-8.9)
[2018-05-26 04:33] LABS: BUN/Creatinine Ratio 6 (6-26); Blood Urea Nitrogen 5 mg/dL (6-20); Calcium 9.2 mg/dL (8.6-10.3); Carbon Dioxide 28 mEq/L (23-29); Chloride 104 mEq/L (98-107); Glucose 108 mg/dL (70-105); Magnesium 2.1 mg/dL (1.6-2.6); Osmolality,Calculated 284 (280-300); Phosphorous 3.4 mg/dL (2.7-4.5); Potassium 3.9 mEq/L (3.5-5.1); Sodium 138 mEq/L (136-145); eGFR For Non-African Americans > 60 (> 60)
[2018-05-26] MEDS: Levalbuterol Neb 0.63 MG/3 ML IH SCH ×4 (04:37→21:53)
[2018-05-26] MEDS: *HR* Heparin 5,000 UNIT/ML VIAL SQ SCH ×2 (06:18→17:33)
[2018-05-26] MEDS ORDERED: Isovue-370 500 ML INFUS..BTL IV ONE (08:38)
--- NOTE | 2018-05-26 08:43 | Internal Med Progress Note ---
Hospitalist Progress Note - Encounter Date of Encounter: 05/26/18 Time of Encounter: 08:40 - Exam Vitals: Temp Pulse Resp BP Pulse Ox 100.1 F H 101 12 119/99 96 05/26/18 07:55 05/26/18 07:55 05/26/18 07:55 05/26/18 07:55 05/26/18 07:55 Exam: Gen - Awake, alert, oriented x 3, no acute distress HEENT - NCAT, PERRLA, EOMI, hearing grossly intact, oropharynx benign CV - RRR, normal S1 and S2, no M/R/G, no BLE edema Resp - Normal WOB, CTAB, no W/R/R GI - Soft, NT/ND, no masses, normal bowel sounds, Skin - Warm, dry, no rashes/lesions/ulcers Psych - Normal mood and affect, no depression or anxiety - Assessment and Plan (1) Sepsis Current Visit: Yes Status: Acute Assessment and Plan: pt has recurring low grade and has bilateral pneumonia and leukocytosis Follow up blood cultures, urine strep and legionella antigen Concern for aspiration. Will switch antibiotics to zosyn and levaquin due to recurring low grade fever to provide anaerobic (from possible aspiration), atypi damien and pseudomonal coverage Obtain CT chest with IV contrast (2) Pneumonia Current Visit: Yes Status: Acute Assessment and Plan: Continue zosyn and levaquin. Follow up cultures. Has viral pneumonia as well with enterovirus positive in respiratory panel Follow up CT chest (3) Hypertension Current Visit: Yes Status: Acute Assessment and Plan: We will continue home meds (4) DVT prophylaxis Current Visit: Yes Status: Acute Assessment and Plan: Heparin sc - Time Spent with Patient Total time spent is greater than 50% in coordination of care (as documented) at patient's floor/unit and/or counseling patient: Internal Medicine: Result - Labs CBC & Chem 7: 05/26/18 03:38 05/26/18 03:38 Labs: Short CBC 05/26/18 Range/Units 03:38 WBC 14.3 H (4.3-11.1) K/mcL Hgb 11.2 L (12.9-16.9) g/dL Hct 32.7 L (37.5-50.1) % Plt Count 482 H (140-400) K/mcL Neutrophils # 10.7 H (1.6-8.9) K/mcL BMP 05/26/18 03:38 Sodium 138 Potassium 3.9 Chloride 104 Carbon Dioxide 28 BUN 5 L Creatinine 0.87 Glucose 108 H Calcium 9.2 - ABG Interpretation ABG results: PT/INR, D-dimer PT 14.0 Seconds (9.4-12.1) H 05/24/18 18:22 Consult Discharge Plan - Plan Referrals: NONE,PCP [Primary Care Provider] - (1) Sepsis Qualifiers: Sepsis type: sepsis due to unspecified organism Qualified Code(s): A41.9 - Sepsis, unspecified organism (2) Pneumonia Qualifiers: Pneumonia type: due to unspecified organism Laterality: bilateral Lung location: lower lobe of lung Qualified Code(s): J18.1 - Lobar pneumonia, unspecified organism (3) Hypertension Qualifiers: Qualified Code(s): I10 - Essential (primary) hypertension
[2018-05-26] MEDS: Acetaminophen 325 MG TABLET PO PRN ×2 (11:05→18:07)
[2018-05-26] MEDS: GuaiFENesin/Dextromethorphan TABLET PO SCH ×2 (11:05→21:09)
[2018-05-26] MEDS: Lisinopril 20 MG TABLET PO SCH (11:06)
[2018-05-26] MEDS: Levofloxacin 750 MG/150 ML 750 MG/150 ML BAG IVPB SCH (11:15)
[2018-05-27] MEDS: *HR* HYDROcodone/Acet 5/325 mg TABLET PO PRN ×3 (00:33→14:01)
[2018-05-27] MEDS: Piperacillin/Tazobactam 3.375 GM in 0.9 % Sodium Chloride Mini Bag 100 ML IVPB SCH ×2 (00:34→09:49)
[2018-05-27] MEDS: Levalbuterol Neb 0.63 MG/3 ML IH SCH ×3 (04:05→15:17)
[2018-05-27 05:48] LABS: Basophils # 0.1 K/mcL (0.0-0.2); Basophils % 0.8 %; Eosinophils # 0.6 K/mcL (0.0-0.6); Eosinophils % 4.1 %; Hematocrit 33.6 % (37.5-50.1); Hemoglobin 11.5 g/dL (12.9-16.9); Immature Granulocytes % 4.4 % (0-4); Lymphocytes # 1.9 K/mcL (0.6-4.6); Lymphocytes % 13.3 %; Mean Corpuscular HGB Conc 34.2 g/dL (31.6-35.5); Mean Corpuscular Hemoglobin 28.3 pg (28.0-33.3); Mean Corpuscular Volume 82.6 fL (83.0-100.0); Mean Platelet Volume 9.3 fL (9.4-12.4); Monocytes % 6.7 %; Platelet Count 547 K/mcL (140-400); Red Blood Count 4.07 M/mcL (4.19-5.50); Red Cell Distribution Width 13.7 % (11.5-14.5); Segmented Neutrophils % 70.7 %
[2018-05-27 05:59] LABS: BUN/Creatinine Ratio 9 (6-26); Blood Urea Nitrogen 7 mg/dL (6-20); Calcium 9.4 mg/dL (8.6-10.3); Carbon Dioxide 26 mEq/L (23-29); Chloride 104 mEq/L (98-107); Glucose 157 mg/dL (70-105); Osmolality,Calculated 283 (280-300); Phosphorous 2.9 mg/dL (2.7-4.5); Potassium 4.2 mEq/L (3.5-5.1); Sodium 136 mEq/L (136-145); eGFR For Non-African Americans > 60 (> 60)
[2018-05-27 06:10] LABS: Neutrophils # 10.3 K/mcL (1.6-8.9)
[2018-05-27] MEDS: *HR* Heparin 5,000 UNIT/ML VIAL SQ SCH (06:15)
[2018-05-27 06:55] LABS: Platelet Estimate Increased (Normal)
[2018-05-27] MEDS: Acetaminophen 325 MG TABLET PO PRN (09:47)
[2018-05-27] MEDS: GuaiFENesin/Dextromethorphan TABLET PO SCH (09:48)
[2018-05-27] MEDS: Lisinopril 20 MG TABLET PO SCH (09:48)
[2018-05-27 12:46] VITALS: BP 145/92
[2018-05-27] MEDS: Levofloxacin 750 MG/150 ML 750 MG/150 ML BAG IVPB SCH (14:07)
[2018-05-27] MEDS ORDERED: Aspirin Enteric Coated 81 MG Tablet PO SCH (14:15)
--- NOTE | 2018-05-27 14:38 | Discharge Summary ---
- NOTES TO OUTPATIENT PROVIDER Notes to Outpatient Provider: Follow-up with your primary care physician within a week of hospital discharge. Orders not resulted at time of discharge: Pending orders 05/24/18 14:30 Culture,Blood [BC] Stat 05/24/18 17:04 HIV Qualitative PCR(Detection) Stat HIV-1 Viral Load Stat 05/25/18 00:40 Sputum Culture [Culture,Sputum with Gram Stain] [RM] Stat 05/28/18 04:00 Basic Metabolic Panel AM 0400 CBC [Complete Blood Count] [HEME] AM 0400 Magnesium AM 0400 Phosphorous AM 0400 05/29/18 04:00 Basic Metabolic Panel AM 0400 CBC [Complete Blood Count] [HEME] AM 0400 Magnesium AM 0400 Phosphorous AM 0400 05/30/18 04:00 Basic Metabolic Panel AM 0400 CBC [Complete Blood Count] [HEME] AM 0400 Magnesium AM 0400 Phosphorous AM 0400 05/31/18 04:00 Basic Metabolic Panel AM 0400 CBC [Complete Blood Count] [HEME] AM 0400 Magnesium AM 0400 Phosphorous AM 0400 Date of Encounter: 05/27/18 Time of Encounter: 14:33 - Discharge Diagnosis (1) Pneumonia Priority: Primary Status: Acute Assessment and Plan: Viral vs bacterial. Viral panel grew rhinovirus. Qualifiers: Pneumonia type: due to unspecified organism Laterality: bilateral Lung location: lower lobe of lung Qualified Code(s): J18.1 - Lobar pneumonia, unspecified organism (2) Sepsis Priority: Secondary Status: Resolved Qualifiers: Sepsis type: sepsis due to unspecified organism Qualified Code(s): A41.9 - Sepsis, unspecified organism (3) Hypertension Priority: Secondary Status: Chronic Qualifiers: Hypertension type: unspecified Qualified Code(s): I10 - Essential (primary) hypertension (4) DVT prophylaxis Priority: Secondary Status: Chronic (5) Thrombocytosis Priority: Secondary Status: Acute Assessment and Plan: Likely due to acute infection. Hospital course: Mr. Sadler is a 53 year old male past medical history significant for hypertension. Patient presented to the emergency room complaining of generalized weakness, fevers, chills and productive cough. Patient was diagnosed with community-acquired pneumonia. viral panel positive for rhinovirus. Patient treated empirically with broad-spectrum antibiotic coverage. With resolution of his symptoms. Patient has been afebrile for more than 24 hours, normotensive, and not tachycardic. Patient is hemodynamically stable to be discharged home on oral antibiotics. Recommended to have a repeated chest x-ray in 8 weeks post completion of antibiotic course. - Time Spent with Patient Total time spent providing and/or coordinating discharge services: - Discharge Medications Prescriptions: HYDROcodone/Acet 5/325 mg [[place] 5-325 mg] 1 tab PO Q6HR PRN 6 Days #10 tablet PRN Reason: Moderate Pain Aspirin Enteric Coated [Aspirin EC] 81 mg PO DAILY 30 Days #30 tablet.dr AlvarezFENesin/Dextromethorphan [Mucinex Dm] 1 each PO BID 8 Days #16 tab.er.12h Levofloxacin [Levaquin] 750 mg PO DAILY 5 Days #5 tablet Home Medications: Lisinopril [Zestril] 20 mg PO DAILY 05/24/18 [History] Aspirin Enteric Coated [Aspirin EC] 81 mg PO DAILY 30 Days #30 tablet. 05/27/18 [Rx] GuaiFENesin/Dextromethorphan [Mucinex Dm] 1 each PO BID 8 Days #16 tab.er.12h 05/27/18 [Rx] HYDROcodone/Acet 5/325 mg [[place] 5-325 mg] 1 tab PO Q6HR PRN 6 Days #10 tablet 05/27/18 [Rx] Levofloxacin [Levaquin] 750 mg PO DAILY 5 Days #5 tablet 05/27/18 [Rx] Allergies/Adverse Reactions: Allergy/AdvReac Type Severity Reaction Status Date / Time No Known Allergies Allergy Verified 05/24/18 14:01 Date of admission: 05/24/18 17:42 Primary care physician: PCP NONE Consults: 05/25/18 00:17 Consult to Respiratory Therapy [CONS] Routine Reason for Consult: flutter valve Time Notified: 00:17 Call Completed: No - Constitutional Vitals: Temp Pulse Resp BP Pulse Ox 98.2 F 84 16 145/92 97 05/27/18 12:44 05/27/18 12:44 05/27/18 12:44 05/27/18 12:44 05/27/18 12:44 General appearance: Present: A&O X 3 Exam: Vitals: Reviewed General: Well-nourished appearing, in no acute distress Skin: Warm and supple. HEENT: Moist mucous membranes. No conjunctivae pallor. Neck: No lymphadenopathy. No JVD. No carotid bruits. No palpable thyroid. Chest: Diminished breath sounds bilaterally. No wheezes, rales or rhonchi. Heart: Normal S1 & S2; rhythmic. No rubs or murmurs. Abdomen: Non-distended, soft and non-tender to palpation. Extremities: no cyanosis or edema. No calf tenderness. Normal distal pulses. Neurological: Awake, alert and oriented to person, place and time. No focal deficits. Psych: Affect appropriate. - Patient Status Disposition: Home, Self-Care Condition: Good Functional capacity at discharge: independent ambulation Overall status at discharge: patient is progressing back to baseline - Discharge Instructions Follow Up With: Pan Seay MD [Non-Partnered Physician] - 06/03/18 3:00 pm - Diet and Activity Activity: resume usual activities as tolerated Diet: low salt diet
[2018-05-29 08:12] LABS: HIV-1 Viral Load Interp NOT DETECTED (Not Detected)
--- NOTE | 2018-05-30 18:15 | Electrocardiograph Report ---
[address] [address] Test Date: 2018-05-24 Pat Name: Pelon Sadler Department: EXAM4 Room: 2N2 Gender: M Pediatric Np: : 1965 Requested By: Elsi Blank Order Number: [id number] Reading MD: Santy Farnsworth Measurements Intervals [place] Rate: 98 P: 83 HI: 169 QRS: 84 QRSD: 87 T: 78 QT: 337 QTc: 431 Interpretive Statements Sinus rhythm Electronically Signed On 05-30-2018 18:14:27 EDT by Santy Farnsworth
== END 2018-05-27 16:12 | disposition home or self-care (01) ==
LOC: EMEROOARM 13:58 → 2NENU 13:58 → SUATTDRO 17:42 → 2NENU 19:43
PROVIDERS: ADMIT Internal Medicine Nephrology; ATTEND Internal Medicine